=== PATIENT | female | born 1955 | race African-American/Black ===

== ENCOUNTER → 2016-08-10 | Outpatient (CLI) | payer OTHER ==
--- NOTE | 2016-08-11 08:26 | RAD ---
DATE: 08/10/2016 EXAM: DIGITAL SCREEN BILAT W/CAD HISTORY: Routine screening COMPARISON: 01/26/2012 This study was interpreted with the benefit of Computerized Aided Detection (CAD). FINDINGS: The breasts are predominantly fatty in nature. No new or enlarging breast densities are seen. Scattered benign type calcifications are present. No suspicious microcalcifications have developed. IMPRESSION: Stable mammograms without evidence of malignancy. BI-RADS CATEGORY: 2 BENIGN FINDING(S) RECOMMENDED FOLLOW-UP: 12M 12 MONTH FOLLOW-UP PQRS compliance statement: Patient information was entered into a reminder system with a target due date for the next mammogram. Mammography is a sensitive method for finding small breast cancers, but it does not detect them all and is not a substitute for careful clinical examination. A negative mammogram does not negate a clinically suspicious finding and should not result in delay in biopsying a clinically suspicious abnormality. "Our facility is accredited by the [employer] Mammography Program."
== END | disposition home or self-care (01) ==
LOC: MAMMO 12:47
PROVIDERS: ATTEND Family Medicine
DX: Z12.31 Encounter for screening mammogram for malignant neoplasm of breast (principal)
CPT/HCPCS: G0202; 77067

== ENCOUNTER → 2016-08-22 | Outpatient (CLI) | payer OTHER ==
--- NOTE | 2016-08-22 17:42 | CARD ---
APPROVED REPORT EXAM: Two-dimensional and M-mode echocardiogram with Doppler and color Doppler. Other Information Quality : Good INDICATION Systolic Heart Failure 2D DIMENSIONS RVDd3.4 (2.9-3.5cm)Left Atrium(2D)3.7 (1.6-4.0cm) IVSd1.6 (0.7-1.1cm)Aortic Root(2D)3.0 (2.0-3.7cm) LVDd4.0 (3.9-5.9cm)LVOT Diameter2.2 (1.8-2.4cm) PWd1.6 (0.7-1.1cm)LVDs3.1 (2.5-4.0cm) FS (%) 22.2 %SV31.8 ml LVEF(%)45.3 (>50%) Aortic Valve AoV Peak Harsh.120.4cm/sAoV VTI24.6cm AO Peak GR.5.8mmHgLVOT Peak Harsh.98.0cm/s LVOT VTI 19.37cmAO Mean GR.3mmHg JAMES (VMAX)3.44da5YPO (VTI)3.02cm2 AI P 1/2 Pxgc850tf Mitral Valve MV E Phvajpgp87.9cm/sMV DECEL [id number] MV A Mupyepjd58.7cm/sMV [id number] E/A Ratio0.6MVA (PHT)1.96cm2 TDI E/Lateral E'11.5E/Medial E'10.7 Tricuspid Valve TR P. Szoixqrc149en/sRAP CJPUBAAX3fpSr TR Peak Gr.10lnZjAXEC61jjIb Pulmonary Vein S1 Tssmxmyw74.5cm/sD2 Dftfhbht65.2cm/s PVa [id number] LEFT VENTRICLE The left ventricle is normal size. There is moderate concentric left ventricular hypertrophy. Left ve ntricle systolic function is low normal. The Ejection Fraction is 50-55%. There is normal LV segmenta l wall motion. Transmitral Doppler flow pattern is Grade I-abnormal relaxation pattern. RIGHT VENTRICLE The right ventricle is normal size. The right ventricular systolic function is normal. ATRIA The left atrium size is normal. The right atrium size is normal. The interatrial septum is intact wit h no evidence for an atrial septal defect or patent foramen ovale as noted on 2-D or Doppler imaging. AORTIC VALVE The aortic valve is calcified but opens well. Doppler and Color Flow revealed mild aortic regurgitati on. There is no significant aortic valvular stenosis. MITRAL VALVE The mitral valve is normal in structure and function. There is no evidence of mitral valve prolapse. There is no mitral valve stenosis. Doppler and Color-flow revealed mild mitral regurgitation. TRICUSPID VALVE The tricuspid valve is normal in structure and function. Doppler and Color Flow revealed trace tricus pid regurgitation. There is no pulmonary hypertension. The PA pressure was estimated at 20 mmHg. Ther e is no tricuspid valve stenosis. PULMONIC VALVE Doppler and Color Flow revealed mild pulmonic valvular regurgitation. There is no pulmonic valvular s tenosis. GREAT VESSELS The aortic root is normal in size. The ascending aorta is moderately at 4.2 cm. The IVC is normal in size and collapses >50% with inspiration. PERICARDIAL EFFUSION There is no evidence of significant pericardial effusion. Critical Notification Critical Value: No <Conclusion> Left ventricle systolic function is low normal. The Ejection Fraction is 50-55%. There is normal LV segmental wall motion. The ascending aorta is moderately at 4.2 cm.
== END | disposition home or self-care (01) ==
LOC: ECHO 08:48
PROVIDERS: ATTEND Internal Medicine Cardiovascular Disease
DX: I50.22 Chronic systolic (congestive) heart failure (principal); I08.3 Combined rheumatic disorders of mitral, aortic and tricuspid valves
CPT/HCPCS: 93306

== ENCOUNTER → 2016-09-29 | Day surgery (SDC) | payer OTHER ==
[~2016-09-29] MED LIST: ASPI81TA50 PO; CARV25TA PO; FURO-68 PO; GLIM4TAB PO; INSU100V13 SQ; IV RINGERS,LACTATED 1000ML 1,000 ML IV SCH; LIRA0.6P2 SQ; LISI40TA PO; METF500T4 PO; POTASSIUM CHLO10 MEQ PO; PROPOFOL 20 ML IV ONE; SIMV40TA PO; VENTOLIN HFA18 GM INH
[2016-09-29 10:31] VITALS: BP 136/78
== END | disposition home or self-care (01) ==
LOC: ENDOS 08:26
PROVIDERS: ATTEND Internal Medicine Gastroenterology
DX: Z12.11 Encounter for screening for malignant neoplasm of colon (principal); K64.0 First degree hemorrhoids; E11.9 Type 2 diabetes mellitus without complications; I10 Essential (primary) hypertension; E78.5 Hyperlipidemia, unspecified; E78.00 Pure hypercholesterolemia, unspecified; Z83.3 Family history of diabetes mellitus; Z82.49 Family history of ischemic heart disease and other diseases of the circulatory system; Z79.82 Long term (current) use of aspirin; Z91.040 Latex allergy status; Z98.41 Cataract extraction status, right eye; Z98.42 Cataract extraction status, left eye
CPT/HCPCS: 45378; J2704

== ENCOUNTER → 2017-03-09 | Outpatient (CLI) | payer OTHER ==
[2016-09-29 10:31] VITALS: BP 136/78
[~2017-03-09] MED LIST changes: -IV RINGERS,LACTATED 1000ML 1,000 ML IV SCH; -PROPOFOL 20 ML IV ONE
== END | disposition home or self-care (01) ==
LOC: LAB 12:02
PROVIDERS: ATTEND Family Medicine
DX: E11.9 Type 2 diabetes mellitus without complications (principal)
CPT/HCPCS: 36415; 83036

== ENCOUNTER → 2021-02-14 | Outpatient (CLI) | payer MEDICARE ==
[2019-04-05 17:00] VITALS: BP 159/105
[~2021-02-14] MED LIST changes: +LISI-130 PO; -LISI40TA PO; +METF500T16 PO; -METF500T4 PO; +POTA10TA12 PO; -POTASSIUM CHLO10 MEQ PO
--- NOTE | 2021-02-14 10:03 | CARD ---
MR#: [id number] Date of Study: 02/14/2021 Ordering Physician: BABAK GONZALEZ, Referring Physician: Jennifer ROJAS: Richy Matos [facility] APPROVED REPORT EXAM: Two-dimensional and M-mode echocardiogram with Doppler and color Doppler. Other Information Quality : AverageHR: 69bpm Rhythm : NSR w/frequent PVC's INDICATION Cardiomyopathy RISK FACTORS Hypertension Obesity Hyperlipidemia Diabetes 2D DIMENSIONS Left Atrium(2D)4.5 (1.6-4.0cm)IVSd1.1 (0.7-1.1cm) Aortic Root(2D)3.6 (2.0-3.7cm)LVDd5.9 (3.9-5.9cm) LVOT Diameter2.3 (1.8-2.4cm)PWd0.9 (0.7-1.1cm) LVDs4.7 (2.5-4.0cm)FS (%) 20.7 % SV71.8 ml Aortic Valve AoV Peak Harsh.118.9cm/sAoV VTI28.0cm AO Peak GR.5.7mmHgLVOT Peak Harsh.64.2cm/s AO Mean GR.4mmHgAVA (VMAX)2.18cm2 AI P 1/2 [id number] Mitral Valve MV E Sibarwcd21.3cm/sMV E Peak Gr.5mmHg MV DECEL [id number] A Ppfejvci752.2cm/s MV E Mean Gr.2mmHgE/A Ratio0.6 Pulmonary Valve PV Peak Jaohxmgd17.7cm/s Tricuspid Valve TR P. Rlpmqswf649ej/sTR Peak Gr.15mmHg Pulmonary Vein S1 Jvrhubpl89.2cm/sD2 Phreegiu47.8cm/s LEFT VENTRICLE The left ventricle is normal size. There is normal left ventricular wall thickness. The left ventricu lar systolic function is normal. The Ejection Fraction is estimated at 50-55%. There is normal LV seg mental wall motion. Transmitral Doppler flow pattern is Grade I-abnormal relaxation pattern. No left ventricle thrombus noted on this study. There is no ventricular septal defect visualized. There is no left ventricular aneurysm. There is no mass noted in the left ventricle. RIGHT VENTRICLE The right ventricle is normal size. There is normal right ventricular wall thickness. The right ventr icular systolic function is normal. ATRIA The left atrium is mildly dilated. The right atrium size is normal. The interatrial septum is intact with no evidence for an atrial septal defect or patent foramen ovale as noted on 2-D or Doppler imagi ng. AORTIC VALVE The aortic valve is mildly sclerotic. Doppler and Color Flow revealed mild aortic regurgitation. Ther e is no significant aortic valvular stenosis. There is no aortic valvular vegetation. MITRAL VALVE The mitral valve is thickened but opens well. There is no evidence of mitral valve prolapse. There is no mitral valve stenosis. Doppler and Color-flow revealed trace to mild mitral regurgitation. TRICUSPID VALVE The tricuspid valve is normal in structure and function. Doppler and Color Flow revealed trace tricus pid regurgitation. There is no tricuspid valve stenosis. PULMONIC VALVE The pulmonary valve is normal in structure and function. Trivial pulmonic regurgitation There is no p ulmonic valvular stenosis. GREAT VESSELS The aortic root is normal in size. The ascending aorta is normal in size. The pulmonary artery is nor mal. The IVC is not well seen. PERICARDIAL EFFUSION There is no pleural effusion. There is no evidence of significant pericardial effusion. Critical Notification Critical Value: No <Conclusion> The left ventricular systolic function is normal. The Ejection Fraction is estimated at 50-55%. There is normal LV segmental wall motion. Transmitral Doppler flow pattern is Grade I-abnormal relaxation pattern. Mild aortic regurgitation. Trace to mild mitral regurgitation. Trace tricuspid regurgitation. There is no evidence of significant pericardial effusion. Signed by : Babak Gonzalez, Electronically Approved : 02/14/2021 10:03:02
== END ==
LOC: ECHO 07:49
PROVIDERS: ATTEND Internal Medicine Cardiovascular Disease
DX: I08.8 Other rheumatic multiple valve diseases (principal); I50.22 Chronic systolic (congestive) heart failure
CPT/HCPCS: 93306

== ENCOUNTER → 2021-08-10 | Outpatient (CLI) | payer MEDICARE ==
[2019-04-05 17:00] VITALS: BP 159/105
--- NOTE | 2021-08-10 16:41 | RAD ---
Digital Mammogram Bilateral History: Routine screening Technique: 2-D digital CC and MLO views were obtained. CAD - computer aided detection was utilize d. Comparison: Mammogram from 08/20/2016. Findings: Breast Tissue Density A: The breasts are almost entirely fatty density. There are no suspicious julissa s, malignant appearing calcifications, or areas of architectural distortion. Impression: No evidence of malignancy. Assessment: BI-RADS Category 1: Negative. Recommendation: Routine screening mammograms. The patient will receive a letter with the results in the mail. Patient information will be entered i nto the mammography reminder system with a target recall date for the next mammogram. A reminder keegan er will be generated. Electronically signed by: Huma Archuleta MD (08/10/2021 4:38 PM) [id number]
== END ==
LOC: MAMMO 12:55
PROVIDERS: ATTEND Family Medicine
DX: Z12.31 Encounter for screening mammogram for malignant neoplasm of breast (principal)
CPT/HCPCS: 77063; 77067